=== PATIENT | male | born 1950 | race Caucasian/White ===

== ENCOUNTER → 2021-06-06 | Outpatient (CLI) | payer MEDICARE | END | disposition home or self-care (01) | LOC: LABWHC1 15:22 | PROVIDERS: ATTEND Urology | DX: Z53.9 Procedure and treatment not carried out, unspecified reason (principal) ==

== ENCOUNTER → 2021-08-06 | Outpatient (CLI) | payer MEDICARE ==
--- NOTE | 2021-08-07 08:58 | MR ---
EXAMINATION TYPE: MR Prostate wo/w con DATE OF EXAM: 08/06/2021 COMPARISON: None. IMAGE QUALITY: . INDICATION: Elevated PSA PSA: 10.8 ng/ml on June 13, 2021 and 12.1 on February 02, 2021 Recent Biopsy and Date: Prior biopsies, last 2008. No recent pathology note available. Pathology Report (If Applicable): As above TECHNIQUE: Examination was performed using a 3T MRI without an endorectal coil. Multiparametric imaging was perf ormed with T2 mutliplanar sequences, axial diffusion weighted imaging and dynamic contrast enhanced i maging, utilizing 10 mL intravenous Gadavist gadolinium contrast. FINDINGS: There is no clinically significant cancer identified. PROSTATE VOLUME: 5.2 cm SI x 5.1 cm AP x 5.5 cm LR Vol= 76.4 cc Predicted PSA equals 9.168 PSA DENSITY: 0.14 ng/ml/cc Enlarged prostate is present. No suspicious T1 hyperintense material to suggest blood product. In the central peripheral zone mid zone level there is 1.4 x 2.0 cm lesion transversely of moderate h ypointensity and ADC mapping fat is isointense on diffusion weighted imaging has heterogeneous postco ntrast enhancement with areas of plateau and washout on dynamic postcontrast imaging. PIRADS 4 lesion . Peripheral zone also shows areas of cnky-qj-nugazaax hypointensity and ADC mapping with mildly hyperi ntense signal on diffusion-weighted imaging involving the right peripheral zone towards the apex wher e there is bulging of the capsule axial image 15 series 501 for reference measuring under 1.5 cm. Thi s area shows significant washout on dynamic postcontrast imaging, PIRADS 4 lesion. Transitional zone hypertrophy is seen with heterogeneity but no distinct suspicious hypoechoic lesion s on T2-weighted imaging. Bladder poorly distended with mild to moderate wall thickening and mild wall trabeculation. No abnorm al pelvic adenopathy clearly seen. No suspicious bowel dilatation. Visualized osseous structures are intact. IMPRESSION: Heterogeneous enlarged prostate with 2 areas of concern in the peripheral zone noted as d etailed above. Highest Assessment Category: 4 MRI Stage: T0 N0 M0 based on review of pelvic images. False negative rates for MRI range from 5-20% depending on risk profile. Assessment Categories: 1 ? Very low (clinically significant cancer is highly unlikely to be present) 2 ? Low (clinically significant cancer is unlikely to be present) 3 ? Intermediate (the presence of clinically significant cancer is equivocal) 4 ? High (clinically significant cancer is likely to be present) 5 ? Very high (clinically significant cancer is highly likely to be present)
== END | disposition home or self-care (01) ==
LOC: RADMRIMAIN 08:44
PROVIDERS: ATTEND Urology
DX: N40.0 Benign prostatic hyperplasia without lower urinary tract symptoms (principal); N42.89 Other specified disorders of prostate
CPT/HCPCS: 72197; A9585

== ENCOUNTER → 2024-07-30 | Outpatient (CLI) | payer MEDICARE ==
--- NOTE | 2024-07-31 07:47 | PE ---
EXAMINATION TYPE: PET CT fusion skull to thigh DATE OF EXAM: 07/30/2024 CLINICAL INDICATION:Male, 74 years old with history of C61 PROSTATE CANCER; TECHNIQUE: Following the intravenous administration of 6.36 mCi of Ga-68 Illuccix (PSMA), whole bod y images are performed from the skull base to the Mid thigh. Images are reviewed on the computer in the coronal, axial, and sagittal planes. Reconstructed rotating images are created on independent [employer] rkstation and reviewed on the computer. A non-contrast CT is performed in conjunction with the PET scan. CT DLP: 85 mGycm, Automated exposure control for dose reduction was used. COMPARISON: CT None, PET/CT None, MRI: 08/06/2021 FINDINGS: Mediastinal SUV mean is 1.6. Hepatic parenchyma SUV mean is 3.5. SKULL BASE AND NECK: No suspicious radiotracer activity. CHEST, MEDIASTINUM, AND HILAR REGION: No suspicious radiotracer activity. ABDOMEN AND PELVIS: There is a small lymph node measuring 3 mm Max SUV 6.3 right lateral of the rectum. MUSCULOSKELETAL STRUCTURES: Degenerative uptake near the left first and second rib articulation vertebral body max SUV 5.3 and 4. 7 respectively. No abnormality on CT lesion definitively visualized. OTHER CT: Atherosclerosis of the carotid bifurcations. Coronary artery and aortic valve calcification s. Bilateral gynecomastia changes. Scattered colonic diverticula. Fat-containing umbilical hernia.Flu id-filled lesion in the right external iliac space measuring 53 x 31 mm no suspicious uptake within t his lesion. Prostate gland appears surgically absent. IMPRESSION: 1. 3 mm lymph node right lateral to the rectum with uptake suspicious for metastatic prostate adenoc arcinoma. 2. Uptake within the left first and second rib posteriorly degenerative basis. Attention follow-up i maging. No CT Lesion identified. [facility], , 07/31/2024 7:45 AM
== END | disposition home or self-care (01) ==
LOC: RADPETMAIN 14:39
PROVIDERS: ATTEND Surgery
DX: C61 Malignant neoplasm of prostate (principal); R93.7 Abnormal findings on diagnostic imaging of other parts of musculoskeletal system
CPT/HCPCS: 78815; A9596